=== PATIENT | male | born 1970 | race Caucasian/White ===

== ENCOUNTER 2023-10-13 07:04 | Outpatient (CLI) | payer OTHER, SELFPAY ==
--- OUTSIDE RECORDS SUMMARY | 2023-10-13 07:08 | XMS_ITS | Clinical Summary ---
Author Name Unknown Organization [facility] Address [place], [place] [address] Care Team Providers Care Welfare Service Aide Name Role Phone Seda Velazquez Primary Care Provider [phone] Allergies Active Allergy Reactions Criticality Noted Date Comments Cefazolin High 04/07/2008 Kidney failure Medications Medication Sig Dispensed Refills Start Date End Date Status PAXIL 20 MG TAB take 1 tablet (20 mg) by oral route once daily 0 Active CLONAZEPAM 1 MG TAB take 1 tablet (1 mg) by oral route 3 times per day 0 Active Immunizations Name Administration Dates Next Due MMR 04/07/2008 Td, Preservative Free (age >= 7 Years) 8 Tdap 05/24/2017 Family History Medical History Relation Name Comments Cancer-colon Father Relation Name Status Comments Brother Alive Father Maternal Grandfather Maternal Grandmother Alive Mother Alive Paternal Grandfather Paternal Grandmother Sister Alive Social History Tobacco Use Types Packs/Day Years Used Date Smoking Tobacco: Never Smokeless Tobacco: Current Chew Alcohol Use Standard Drinks/Week Comments Yes 1.7 (1 standard drink = 0.6 oz p ure alcohol) Sex and Gender Information Value Date Recorded Sex Assigned at Not on file Gender Identity Not on file Sexual Orientation Not on file Obstetrics History Last Filed Vital Signs Vital Sign Reading Time Taken Comments Blood Pressure 151/96 05/24/2017 5:47 PM CDT Pulse 73 05/24/2017 5:47 PM CDT Temperature 37.1 ??C (98.7 ??F) 05/24/2017 5:47 PM CD T Respiratory Rate 18 05/24/2017 5:47 PM CDT Oxygen Saturation 98% 05/24/2017 5:47 PM CDT Inhaled Oxygen Concentration - - Weight 132.5 kg (292 lb) 04/07/2008 12:37 PM CDT Height 195.6 cm (6' 5) 04/07/2008 12:37 PM CDT Body Mass Index 34.63 04/07/2008 12:37 PM CDT Plan of Treatment Health Maintenance Due Date Last Done Comments COVID-19 vaccine series (#1) 05/24/1972 Depression screening for age 12+ 1983 HIV for age 15-65 11/21/1986 BMI (ht and wt on same day) for age 18+ 11/21/1989 Hepatitis C screening for ag e 18-79 11/21/1989 Colonoscopy through age 75 11/21/2016 Lipids for age 45-75 11/21/2016 Zoster (shingles) series for age 50+ (1 of 2) 11/21/2021 Influenza for age 50-64 05/22/2023 Tetanus booster 05/24/2027 05/24/2017, 04/07/2008 Tdap Completed 05/24/2017 Pneumococcal series for age 6-64 Aged Out No longer eligible b ased on patient's age to complete this topic Care Teams Welfare Service Aide Relationship Specialty Start Date End Date Seda Velazquez [address] [place] [id number] PCP - General 05/24/17
--- NOTE | 2023-10-13 07:15 | MR_ITS ---
[facility] [address] [facility] [address] Phone:?[phone] Fax:?[phone] Referring Physician Information: Allen Leary [address] [facility] [address] Phone:?[phone] Fax:?[phone] Patient:Faby Tucker D.O.B:?1970 Sex:?Male Phone:?[phone] [facility] MRN:?[id number] Exam Date:?10/13/2023 EXAM: MRI of the LEFT KNEE, without contrast CLINICAL INFORMATION: Male, 52 years old, with left knee pain, swelling, and limited range of motion. INDICATION: Evaluate knee pain. PRIOR SURGERY: None reported. PLAIN FILMS: Knee radiographs dated 10/01/2023. COMPARISONS: No prior MRIs available. TECHNICAL INFORMATION: Using a 1.5T MR scanner and a localizing surface coil: sagittals: PD, PDFS coronals: PD, T2FS axials: PD, PDFS SEDATION: None CONTRAST: None FINDINGS: Knee joint: Effusion: Moderate left knee effusion, with synovitis. Popliteal cyst: Tiny, unruptured popliteal (Wright's) cyst Loose bodies: None. Subcutaneous and extra-articular soft tissues: Unremarkable. Ligaments: ACL: Intact ACL anteromedial and posterolateral bundles, without sprain or tear. PCL: Intact PCL, without acute or chronic injury. MCL: Intact MCL superficial and deep layers, without injury. LCL: Intact LCL, without injury. Posterolateral corner: No posterolateral corner soft tissue injury. Popliteus, biceps femoris, iliotibial band, popliteofibular ligament and lateral gastrocnemius are intact. Posteromedial corner: No posteromedial corner soft tissue injury. Semimembranosus, pes anserine tendons and posterior oblique ligament are without injury, tendinopathy or bursitis. Extensor mechanism: Patellar tendon: Intact, without tendinopathy. Quadriceps tendon: Intact, without tendinopathy. Retinacula: Medial and lateral retinacula are intact. Fat pads: Unremarkable infrapatellar Hoffa's, quadriceps and prefemoral fat pads. Medial compartment: Medial meniscus: Abnormal signal and irregularity is present throughout the posterior meniscocapsular junction, without discrete tear (sagittal PDFS series 6 images 11-16). Medial femoral condyle: No chondromalacia or osteochondral abnormality. Medial tibial plateau: No chondromalacia or osteochondral abnormality. Lateral compartment: Lateral meniscus: No articular surface, meniscosynovial junction or root tear. No displacement, extrusion or parameniscal cyst. Lateral femoral condyle: No chondromalacia or osteochondral abnormality. Lateral tibial plateau: No chondromalacia or osteochondral abnormality. Patellofemoral joint: Patella: Focal chondral fissuring is present along the median ridge of the patella with a 1.1 x 1.0 cm area of partial-thickness chondral delamination (sagittal PDFS series 6 image 18 and axial T2FS series 4 image 10). Trochlea: No chondromalacia or osteochondral abnormality. Proximal tibiofibular joint: Unremarkable, without evidence of ligament sprain injury, joint effusion or adjacent marrow edema. Bones: Extensive bone marrow edema is present throughout the entire lateral femoral condyle with the appearance of subtle curvilinear hypointense signal along the central surface (coronal PD series 9 image 21, sagittal PD series 5 image 24, and coronal STIR series 8 image 22). IMPRESSION: 1. Abnormal appearance of the lateral femoral condyle suggestive of ill-defined subchondral stress/insufficiency fracturing. However, a marked contusion could have a similar appearance. There is no evidence of a more well-defined fracture line. 2. Mild posterior meniscocapsular junction sprain of the medial meniscus. No discrete medial or lateral meniscal tear. 3. Moderate knee joint effusion, with synovitis and a tiny, unruptured popliteal (Wright's) cyst. 4. Focal chondral fissuring along the median ridge of the patella with a 1.1 x 1.0 cm area of partial-thickness chondral delamination. 5. No cruciate or collateral ligament sprain/tear. 6. No osteochondral abnormality of the medial or lateral compartment. BC Electronically signed on 10/13/2023 2:59:00 PM by Tai Carr M.D.
== END 2023-10-13 07:05 | disposition home or self-care (01) ==
LOC: MRI 07:05
PROVIDERS: PCP Internal Medicine; Visit Provider Nurse Practitioner Family
DX: M25.562 Pain in left knee (principal); S83.8X2A Sprain of other specified parts of left knee, initial encounter; M25.462 Effusion, left knee
CPT/HCPCS: 73721